=== PATIENT | female | born 1945 | race Caucasian/White ===

== ENCOUNTER → 2016-11-17 09:29 | Outpatient (CLI) | payer MEDICARE ==
[2014-09-04 20:03] VITALS: BMI 27.1
[~2016-11-17 09:29] MED LIST: CALCIUM 500 + D1 TAB PO; COMBIVENT INH14.7 GM INH; COMBIVENT RESPIM4 GM INH; DIOVAN160 MG PO; ESTRACE1 MG PO; FLUTICASONE PRO16 GM NS; HYDROCHLOROTHIA25 MG PO; PEPCID20 MG PO; PLAVIX75 MG PO; PRAVASTATIN SOD10 MG PO; PROTONIX40 MG PO; SINGULAIR10 MG PO; TOPAMAX25 MG PO; TYLENOL 325 MG325 MG PO; ULTRAM50 MG PO; VERELAN180 MG PO; VIBRAMYCIN 100100 MG PO
== END | disposition home or self-care (01) ==
LOC: D.NM 09:29
DX: R10.11 Right upper quadrant pain (principal)